=== PATIENT | female | born 1945 | race Caucasian/White ===

== ENCOUNTER → 2025-05-31 10:06 | Outpatient (CLI) | payer MEDICARE, OTHER, SELFPAY ==
[2025-05-31 10:18] LABS: Appearance Urine UA CLEAR; Bilirubin Urine UA NEGATIVE (NEGATIVE); Color Urine UA YELLOW; Glucose Urine UA NEGATIVE (Negative); Ketones Urine UA NEGATIVE (NEGATIVE); Leukocyte Esterase Urine UA NEGATIVE (NEGATIVE); Nitrite Urine UA NEGATIVE (Negative); Occult Blood Urine UA 2+ (Negative); Protein Urine UA NEGATIVE (Negative); Specific Gravity Urine UA 1.010 (1.000-1.035); Urobilinogen Urine UA 0.2 E.U./dL (0.2)
[2025-05-31 10:32] LABS: pH Urine UA 6.5 (4.5-8.0)
[2025-05-31 10:33] LABS: Culture Indicated Urine Cult Not Indicated
== END ==
PROVIDERS: PCP Internal Medicine; Visit Provider Obstetrics & Gynecology Gynecology
DX: N39.41 Urge incontinence (principal); N81.11 Cystocele, midline
CPT/HCPCS: 81001

== ENCOUNTER 2025-07-30 18:41 | Day surgery (SDC) | payer MEDICARE, OTHER, SELFPAY ==
[2025-07-24 09:24] VITALS: BMI 25.4
--- NOTE | 2025-07-25 16:11 | PM.GYNHP.1 ---
History of Present Illness History of Present Illness Narrative: Liliana Lomas is a 79 year old female Date of procedure:?? July 30, 2025 Preoperative diagnosis:? 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 Robotic laparoscopic sacral colpopexy. With prophylactic oophorectomy bilateral Possible mid urethral sling - if stress incontinence is diagnosed during surgery, with possible partial sling excision if new sling needed. cystoscopy Postop Meds Tylenol 1000 mg, ?3 times a day? Motrin 400 mg (over age 65 yr) 3 times a day Oycodone 5 mg,? take 1 pill every 4-6 hr as needed, # 5? Colace,? 1 pill BID, for constipation CC: Prolapse HPI: 79-year-old female who presents for evaluation of above complaint.?? She reports onset of symptoms 9 years ago, getting worse.?? She considers this a? Moderate? problem. She reports a worsening vaginal bulge that was treated earlier this year with a pessary by Dr. Guidry in [place]. She has a 3. Ring pessary that she removes nightly. We discussed that she might be able to do just fine removing it every 1-2 weeks, as removing it nightly can irritate the skin. She is here to discuss possible surgical treatment. She has symptoms suggestive of a cystocele and possible vaginal vault prolapse. She has a vaginal bulge that protrudes, the size of a large grape or a small golf ball. She has some voiding difficulty although it is atypical. Oddly after the pessary is in, she has some worsening urge incontinence but not worsening stress incontinence she uses vaginal estrogen. She has no defecation difficulty symptoms suggestive of a rectocele. No splinting, no straining for bowel movements On exam today, only a mild cystocele is noted, likely because of the corrective benefits of using the pessary. We will reexamine her with the pessary out for a few days and be able to see the full extent of her prolapse at follow up later this month. Definitely the bulge that is described above was not seen today She has some urge incontinence symptoms. She also has a history of 2 prior surgical treatments for stress incontinence. She had a bladder neck suspension in 1996, she is unsure if this was done vaginally or abdominally. She has lots of abdominal scars. She also had some type of a bladder sling done in the early . She also uses estrogen tablets. We discussed if she needs a refill in discussed different types of estrogen she is interested in trying vaginal estrogen cream, we will order for her For her incontinence she uses 2 mini pads in the day, none at night. Might leak 2 or 3 times a day. Triggers are both stress and urge incontinence, difficult to clarify by history. See triggers below. It sounds like she is reporting more urge incontinence with the pessary in place she voids every 2-3 hours in the day and 1 at night. We will offer her a trial of overactive bladder medication to see if this makes an impact on her symptoms or not. We will order her both oxybutynin and Myrbetriq. She can use oxybutynin XL 5 mg 1st and then switch to Myrbetriq 50 mg, to see if either of them as effective. No bladder infections prior hyst -??? +, still has ovaries ? -? 3 c-sec? -?? 0 Pelvic Floor Review of Systems: (HPI) Stress Urinary Incontinence symptoms (SHARLA):?? 1-2 per day Triggers include:??? [cough, exercise, walking, ? Urge Incontinence symptoms (Urge UI):?? 1-2 per day Triggers include:??? random, and ? running water,? not necessarily with full bladder with urge ? Pads: She wears two mini pads a day Overactive Bladder symptoms (OAB):? ? Frequency:?? Every 2 or 3 hour Nocturia:?? X1 Urgency:?? Moderate Prior incontinence treatment includes:? Medical:? None Surgical:? 1996, some type of bladder neck suspension, abdominal or vaginal Early 2 , some type of bladder sling, she does not remember Valeriomartha:?? Yes Physical therapy:?No? Pessary:?Yes, for the prolapse. And appears to be making urge incontinence worse. Diet / Fluids: Fluid restriction:? No Excessive fluids:?No Pain symptoms:? Painful bladder:???No Dysuria:??? No Dyspareunia:? No Dysmenorrhea:? No Urinary Risk Factors UTI?s, recurrent:? 0 Hematuria:? No Kidney Stones:?No? Tobacco use:? No Pelvic Organ Prolapse (POP) symptoms:?? Bulge:?+ Pressure and /or? Heaviness:?+? Splint for defecation or voiding:???0 Voiding dysfunction: Abnormal stream:? No Strain to void:? No Incomplete emptying:?No Voiding difficulty:? No Retention:??? No Bowel Function: Constipation:?0 Strain to defecate:?0 Fiber:?0 Laxatives:?0 Fecal Incontinence:? Liquid stool:? No Solid stool:?No?? Sexual function Sexually active:? No Incontinence with sex:? No ? General Review of Systems: Constitutional, CV, Endo, Musc-skel, Eyes, Cancer, Skin, Breast, GI, Heme/Lymph, Psych, Urinary, Neuro, [employer] Engineer, Resp, Sexual:??? Pertinent positives listed above in HPI All others reviewed and negative. . . [facility] Medical History (Updated 05/30/25 @ 16:12 by Danny Parra MD) Urge incontinence Cystocele, midline Allergies nitrofurantoin (From Macrobid) Allergy (Verified 07/17/25 11:14) Rash Medications calcium 333 mg-D3 8.3 mcg-magnesium ox 116.7 an-F-B-minerals capsule (BoneUp) cap PO 05/30/25 [History Confirmed 07/17/25] estradiol 0.01% (0.1 mg/gram) vaginal cream (Estrace) 1 g vaginal 3XW #42.5 grams 05/30/25 [Rx Confirmed 07/17/25] levothyroxine 75 mcg tablet (Synthroid) 75 mcg PO DAILY Low Thyroid 05/30/25 [History Confirmed 07/17/25] mirabegron 50 mg tablet,extended release 24 hr (Myrbetriq) 50 mg PO DAILY #30 tabs 05/30/25 [Rx Confirmed 07/17/25] rosuvastatin 5 mg tablet (Crestor) mg PO slightly high cholesteral 05/30/25 [History Confirmed 07/17/25] venlafaxine 37.5 mg capsule,extended release 24 hr (Effexor XR) 37.5 mg PO DAILY 05/30/25 [History Confirmed 07/17/25] calcium 333 mg-D3 8.3 mcg-magnesium ox 116.7 jp-N-J-minerals capsule (BoneUp) cap PO 06/12/25 [History Confirmed 07/17/25] cholecalciferol (vitamin D3) 100 mcg (4,000 unit) tablet 100 mcg PO DAILY 06/12/25 [History Confirmed 07/17/25] oxycodone 5 mg tablet 5 mg PO Q8H postop pain #5 tabs 07/17/25 [Rx Confirmed 07/17/25] Tobacco & Substance Use Smoking Status: Former smoker Exam Vitals 07/17/2511:19 Height 5 ft 5.25 in Weight 130 lb BMI 21.4 BP 129/61 Blood Pressure Location Lt radial Position Sitting Pulse 52 L Pulse Source Monitor Pulse Oximetry (%) 97 Oxygen Delivery Method room air Narrative: General: healthy, alert, coherent, no acute distress, cooperative, nontoxic Pulmonary: normal breathing, no distress Abdomen: soft, no mass, non-distended, no hernia, non-tender Vulva: Normal labia majora, labia minora, introitus, and clitoris, non-tender Urethra meatus: normal, no discharge Perineum: Normal, non-tender Urethra: No mass, non-tender Bladder: no mass, non-tender Vagina: No lesions, no discharge, min atrophy with good vag ERT effect, non-tender Prolapse -only a mild cystocele was really appreciated. Likely because of the pessary that is in place. We will examine her again at a later date this month, and have the pessary stay out for a few days in order to reveal the full extent of the prolapse Levators: Non-tender, 4 / 5 kegel squeeze hyst Bimanual: no mass, no adnexal mass, non-tender Anus: No lesion, non-tender, no hemorrhoid Empty Cough Stress test: Neg PVR: 20 mL by catheter Urethral angle hypermobile: Not really, appears to be supported at least in the mid and distal urethra by her prior urethropexy and mid urethral sling. The bladder does appear to prolapse over the urethra, likely kinking it POP-Q Exam: Aa: -1 Ba: -1, suspect likely is about +1 in reality, definitely a cystocele kinking over the urethra Ap: -1 Bp: -1, overall, this looks more like just some posterior wall laxity, not really a significant rectocele C: -6, suspect this will look like a stage 1-2 vaginal vault prolapse when the pessary is out D: Not applicable TVL: 8 GH: 3 PB: 2.5 Introitus size: 2 fingerbreadths Cystocele stage: Stage II, perhaps even stage III Rectocele stage: Possible mild stage II A rectocele Uterine/Vault Prolapse Stage: Suspect she might have more significant vaginal vault prolapse when the pessary is out. None seen today Assessment & Plan (1) Cystocele, midline: Status: Acute (2) Urge incontinence: Status: Acute (3) Vaginal pessary present: Assessment and Plan ? Patient counseled regarding above conditions.? Educational materials given to patient. 1. Pelvic Organ Prolapse - Stage 2 a cystocele, suspect possibly stage III cystocele, we will do repeat exam. Also suspect possible more significant vaginal vault prolapse This diagnosis and its etiology was discussed with the patient.? Treatment options were discussed including: expectant management, pessary trial, and surgical intervention. We briefly discussed risks and benefits of surgery. All surgery for prolapse is not 100% successful and there is a chance of recurrence or failure. Currently using a size 3. Ring pessary. Recommend that she remove for self-care every 1-2 weeks out overnight. We will have her return for an exam on June 12, 2013 days, we will have her leave the pessary out for about 5 days before the visit so that we can see the prolapse full extent she desires surgery, we will develop a surgical plan once we see the full extent of the prolapse We discussed various possible treatment options to include vaginal and laparoscopic surgery 2. Unclear type of atypical urinary incontinence, with history of 2 prior urethropexy these for stress incontinence. Sounds like urge and stress incontinence but mostly urge incontinence We can clarify further at future visits. For now, we will offer a trial of 2 different overactive bladder medications, oxybutynin XL 5 mg daily, and then try Myrbetriq 50 mg daily If these resolve the problem, then it is obviously more urge incontinence than stress incontinence Might need to consider doing urodynamics later, but presently these are not available here at the moment. Could do a simple CMG 3. Using vaginal estrogen Presently using Vagifem wants to try using vaginal estrogen cream, we will order for her. See prior note. She was using a pessary for her prolapse. She is interested in surgery. At the prior visit, her prolapse did not look very significant. So she presents today with her pessary out for the last few days to recheck to see if her prolapse is more significant, and needing surgery. See findings below. It is definitely more significant and she would like to proceed with surgery Exam ? General:? healthy, alert, coherent, no acute distress Today's POP-Q Exam: Aa: 0 Ba: +1 Ap: -1 Bp: -1 C: -5 D: Not applicable TVL: 8 GH: 3 PB: 2.5 prior POP-Q Exam: Aa: -1 Ba: -1, suspect likely is about +1 in reality, definitely a cystocele kinking over the urethra Ap: -1 Bp: -1, overall, this looks more like just some posterior wall laxity, not really a significant rectocele C: -6, suspect this will look like a stage 1-2 vaginal vault prolapse when the pessary is out D: Not applicable TVL: 8 GH: 3 PB: 2.5 ? Assessment / Recommendations: 1. Pelvic Organ Prolapse -stage II cystocele and vaginal vault prolapse, no significant rectocele .? This diagnosis and its etiology was discussed with the patient.? Treatment options were discussed including: expectant management, pessary trial, and surgical intervention. We briefly discussed risks and benefits of surgery. All surgery for prolapse is not 100% successful and there is a chance of recurrence or failure. Currently using a pessary, wishes to proceed with surgery she desires surgery my recommendation = robotic laparoscopic sacral colpopexy, cystoscopy see below for counseling 2. Urethral hypermobility She is at risk for postoperative stress incontinence from the prolapse repair. Studies show that in women with severe prolapse of the anterior vaginal wall, 25% will have significant stress incontinence, following prolapse repair surgery. So her usual risk of finding stress incontinence, as below, is 25%. However, she has a prior mid urethral sling from about 20 years ago.. It is unknown what the risk of recurrent incontinence will be in her situation. I expect it to be much lower. Also, it can be difficult to do a repeat sling, especially at the time of doing the sacral colpopexy. Pulling on the anterior vaginal wall tissue could potentially disrupt the sacral colpopexy repair. Therefore, we discussed the options of trying to diagnose stress incontinence at the time of surgery and proceeding with a sling, or, instead doing an interval sling if it is warranted. She and I both agree that doing an interval sling is the best strategy for her Therefore, we will notl plan to diagnose stress incontinence intra-operatively by filling the bladder with 200-300 cc of fluid, and then using a crede maneuver to see if there is leakage of fluid from the urethra. And we will not plan to proceed with doing a sling at the time of the surgery for the prolapse. We will do later as needed 3. She still has both tubes and ovaries. We discussed doing a prophylactic oophorectomy at the time of the surgery. She is leaning in that direction. She will let me know at follow up whether she wants her ovaries in place or removed. Date of procedure:?? July 30, 2025 Preoperative diagnosis:? 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 Robotic laparoscopic sacral colpopexy. With prophylactic oophorectomy bilateral Possible mid urethral sling - if stress incontinence is diagnosed during surgery Postop Meds Tylenol 1000 mg, ?3 times a day? Motrin 400 mg (over age 65 yr) 3 times a day Oycodone 5 mg,? take 1 pill every 4-6 hr as needed, # 5? Colace,? 1 pill BID, for constipation Patient counseled extensively about the Risks, Benefits, and Alternatives to surgery.? She was offered the opportunity to ask any questions, and all questions were answered. ? Surgical Risks include: Bleeding, Hemorrhage, Transfusion, Infection (especially wound or bladder), Injury to adjacent organs (especially bladder, ureter, bowel, blood vessels, nerves), Postop or Chronic Pain, need for Reoperation, and Life-threatening event (especially M.I., CVA, PE, DVT). Procedure Risks include: Failure to Cure condition, Recurrence of condition months or years later, Urinary incontinence, Voiding dysfunction or Urinary Retention with prolonged catheter use, Poor wound healing, Erosions of any mesh or graft used, Dyspareunia, Vaginal scarring or narrowing, Need for additional surgery (immediate or delayed).? The expected cure and improvement and failure rates were discussed. Patient counseled to avoid the following for 6 weeks after surgery: (1) Impact sports (like running or jumping), walking and stairs OK (2) Lifting over 20# (3) Sexual intercourse No limits after 6 weeks. ? Good exercise tolerance, > 4 Mets. Her current medications were reviewed, and instructions given over which to use and which to discontinue before surgery.? Post-operative care instructions reviewed.? We discussed post-operative pain: Pain should be in the mild-moderate range, but can be moderate-severe for the first few days.?? Prescriptions will typically be given for (1) acetaminophen (Tylenol) and (2) non-steroidal anti-inflammatory drug (NSAID, like Motrin or Naprosyn), use both together, around the clock. Prescription will also be given for a (3) narcotic pain medication. Use the narcotic as needed, as a booster to the Tylenol and NSAID. You might need 0-4 narcotic pills a day typically. The narcotic will only be needed for a few days.?? Gradually use less of the narcotic, but continue the Tylenol and NSAID.? After a few days, the narcotic should no longer be needed, and only the Tylenol and NSAID will be needed.? Warm packs or cold packs can also be used for pain.??Do not drive for as long as you are using the narcotic pain medication? - this should only be a few days.?? Constipation is associated with use of narcotic pain medications, and can be improved with use of a stool softener, or fiber, or a mild laxative.? If you are sent home from the hospital with a Santiago Catheter in place:? please call the office on the day after surgery We will usually remove the catheter 2-4 days after surgery: a. You will perform an at home Santiago catheter removal -or- b. You will come in to the office for a voiding trial, (For some unusual surgeries, we might leave the catheter in for up to 2 weeks, and then remove it.) Instructions for at home Santiago catheter removal..... For at-home Santiago catheter removal, this can be done on postop day 2 or 3 or 4, depending on various factors. 1. At 6 or 7 a.m., have the patient cut the Santiago catheter with scissors, while standing in a shower or bath tub. a. Cut the catheter right in the middle of the tubing, about 6 inches from the body. b. The sterile water that is inside the Santiago balloon will leak all over the floor of the shower or bath tub. This is expected. c. The catheter will either fall out of the urethra, or just gently pull on it and it will come out. 2. Now, the bladder will gradually fill up over the next few hours. 3. Go ahead and empty the bladder when you feel an urge to void. Please note how strong the urine stream is. a. If the urine stream is normal or close to normal, then everything is good to go. b. If the urine stream is slow or you can not void, then return to the clinic in the afternoon. We will place another Santiago catheter. We will repeat the voiding trial in 3-4 days. All of her questions were answered Danny Parra MD UroGynecology & Pelvic Reconstructive Surgery [facility] Medical History (Updated 07/24/25 @ 09:19 by Karen Bob RN) SEALS (dyspnea on exertion) Reactive airway disease PFO (patent foramen ovale) Osteopenia TIA (transient ischemic attack) CAD (coronary artery disease) HLD (hyperlipidemia) GERD (gastroesophageal reflux disease) Depression Skin cancer Hypothyroid Vaginal vault prolapse Urge incontinence Cystocele, midline Surgical History (Updated 07/24/25 @ 09:21 by Karen Bob RN) Hx of cardiac cath (04/28/17) Hx of appendectomy Hx of tonsillectomy S/P partial hysterectomy History of urologic surgery (01/30/97) History of midurethral sling procedure Social History Smoking Status: Former smoker Meds Home Medications and Allergies Home Medications ?Medication ?Instructions ?Recorded ?Confirmed ?Type calcium 333 mg-D3 8.3 cap PO 05/30/25 07/17/25 History mcg-magnesium ox 116.7 dj-K-L-minerals capsule (BoneUp) estradiol 0.01% (0.1 mg/gram) 1 g vaginal 3XW #42.5 grams 05/30/25 07/17/25 Rx vaginal cream (Estrace) levothyroxine 75 mcg tablet 75 mcg PO DAILY Low Thyroid 05/30/25 07/17/25 History (Synthroid) mirabegron 50 mg tablet,extended 50 mg PO DAILY #30 tabs 05/30/25 07/17/25 Rx release 24 hr (Myrbetriq) rosuvastatin 5 mg tablet (Crestor) mg PO slightly high cholesteral 05/30/25 07/17/25 History venlafaxine 37.5 mg 37.5 mg PO DAILY 05/30/25 07/17/25 History capsule,extended release 24 hr (Effexor XR) calcium 333 mg-D3 8.3 cap PO 06/12/25 07/17/25 History mcg-magnesium ox 116.7 dw-M-E-minerals capsule (BoneUp) cholecalciferol (vitamin D3) 100 100 mcg PO DAILY 06/12/25 07/17/25 History mcg (4,000 unit) tablet oxycodone 5 mg tablet 5 mg PO Q8H postop pain #5 tabs 07/17/25 07/17/25 Rx Allergies Allergy/AdvReac Type Severity Reaction Status Date / Time nitrofurantoin (From Allergy Rash Verified 07/17/25 11:14 Macrobid) Assessment & Plan Time-Based Coding :: [TOTAL MINUTES] spent with patient and on the chart (including review of chart, obtaining history, exam, reviewing outside data, placing orders, documenting exam and treatment plan, and counseling patient) on [DATE].
[2025-07-30] VITALS (13 sets, daily range): BP systolic 97–129; BP diastolic 53–85; PULSE 55–64; RESP 8–26; TEMP 36.7–37.4; O2SAT 95–100
--- NOTE | 2025-07-30 | PATH_ITS ---
[facility] Accession Number: [id number] No. of containers..01 Tissue . 01 Material submitted: . fallopian tube - BILATERAL FALLOPIAN TUBES AND BILATERAL OVARIES . 01 Diagnosis: BILATERAL FALLOPIAN TUBES AND BILATERAL OVARIES; BILATERAL SALPINGO-OOPHORECTOMY: Benign bilateral ovaries with corpus albicans and surface adhesions. Benign bilateral fallopian tubes and paratubal cysts. Negative for atypia or malignancy. [facility] 08/02/2025 1609 Local . 01 Electronically signed: . Elia Coreas MD, Pathologist NPI- [id number] . 01 Gross description: . Received in formalin with two patient identifiers and bilateral tubes and ovaries are two intact ovaries and two separate fallopian tubes. The first ovary is 4 g, 3.5 x 1.2 x 0.9 cm. The second ovary is 3 g, 3.4 x 1.5 x 0.7 cm. The cut surfaces of the ovaries are yellow-shaw and grossly unremarkable. The first fallopian tube is 6.9 cm long by 0.4 cm in diameter, with multiple paratubal cysts up to 0.5 cm. The second fallopian tube is 3 cm long by 0.4 cm in diameter, with multiple paratubal cysts up to 0.5 cm. The cut surfaces are shaw with pinpoint lumens. Periodicals Clerk sections are submitted as follows: . A1: First ovary and first fallopian tube with entire bisected fimbria. A2: Second ovary and second fallopian tube with entire bisected fimbria. ([id number]) /ADE 07/31/2025 1207 Local . 01 Pathologist provided ICD-10: N81.9, N81.11 . 01 CPT . 792415 Specimen Comment: A courtesy copy of this report has been sent to [facility] Pathology Performed at: [address] [address] [address] [address] [facility], [place], [place] [id number] MD Getachew Velasco MD Phone: [phone]
[2025-07-30] MEDS: PHENAZOPYRIDINE 100 MG TABLET 200 MG PO (11:52)
[2025-07-30] MEDS: GABAPENTIN 300 MG CAPSULE PO (11:52)
[2025-07-30] MEDS: ACETAMINOPHEN 325 MG TABLET 975 MG PO ×2 (11:52→21:15)
[2025-07-30] MEDS: SCOPOLAMINE 1 PATCH TOP (11:52)
[2025-07-30] MEDS: LACTATED RINGERS 1,000 ML 42 ML IV (11:53)
--- NOTE | 2025-07-30 14:25 | PM.PREOP ---
Pre-operative Note Interval Note History & Physical reviewed/Exam performed by Physician: Yes Changes to H&P: No H&P completed within 30 days and has changed as indicated here:: Robotic laparoscopic sacral colpopexy. With prophylactic oophorectomy bilateral cystoscopy (and no repeat sling at this surgery due to concern over disruption of the RSC repair)
--- NOTE | 2025-07-30 15:10 | SUR.OPER ---
Lithotomy on padded OR bed. [place] Pad Positioner under torso. Head on pillow, arms padded and tucked at sides. Legs secured in padded yellow fins stirrups. Foam facial pad in place per anesthesia. All pressure points padded and protected. Surgeon in room to assist with positioning and approve final position.
--- NOTE | 2025-07-30 17:53 | P.OP_ITS ---
Operative Date/Time/Diagnoses Date of procedure: 07/30/25 Time of procedure: 15:15 Pre-op diagnosis: Cystocele, vaginal vault prolapse, desires prophylactic oophorectomy Post-op diagnosis: same Procedure & Clinicians Procedure: Procedures Operation Date: 07/30/25 12:45 Actual Procedure Side Surgeon p Robotic Laparoscopic Sacral Colpopexy, Cystoscopy, Bilateral Oophorectomy, Bilateral Salpingectomy Bilateral Danny Parra MD Operative Notes Findings: Operative Note Surgeon:? Danny Parra MD Gang Ripsaw Operator: Tatiana Goodman MD Pre-Op Diagnosis:?? Vaginal vault prolapse, cystocele Desires prophylactic oophorectomy Prior mid urethral sling Post-Op Diagnosis:?? Same? Procedure:?? Robotic assisted laparoscopic sacral colpopexy, Robotic assisted laparoscopic bilateral salpingo-oophorectomy cystoscopy Findings (brief): 1. 5 ports, usual fashion. Stage II prolapse to +1 cm. No rectocele. Mild adhesions of the sigmoid colon to the vaginal cuff. Both tubes and ovaries were adhesed to the pelvic sidewalls. No adhesions of bowel or omentum. Both tubes and ovaries removed. Both were normal. 2.? Restorelle mesh cut to 4 cm Ant and 7 cm Post, attached to vagina with sutures of 2-0 vicyrl.?? Excellent support of all 3 compartments.? 3.? Cystoscopy with normal bladder, ureters, urethra, no injury, bilateral ureteral jets.? Date of Surgery:? July 30, 2025 Complications:? None Specimens:? Both tubes and ovaries Anesthesia Technique: General endotracheal Estimated Blood Loss (mls):? Minimal Blood Replacement (mls):? None Drains:? Fraire Condition:? Stable Procedure in detail: After consent was confirmed, the patient was taken to the operating room and?positioned with the [place] Pad on the OR bed, and then placed under general anesthesia without incident. ?Sequential compression devices were in place and active. ?She received perioperative antibiotics. ?The arms were tucked and her legs were placed in the dorsal lithotomy position using the Nakul stirrups. ??She was then prepped and draped in the usual sterile fashion. ?An examination under anesthesia was consistent with the preoperative assessment. ?A three-way 16 [place] fraire catheter was placed. ?Attention was turned to the abdomen. All 5 trocar sites were injected with 0.25% Marcaine with epinephrine prior to incision. A supra- umbilical 8?mm port was placed 2-3 cm above the umbilicus: a 8?mm incision was made, the Veress needle was placed, and pneumoperitoneum was achieved at low flow of 5, reaching a pressure of about 12, with 2-3 liters of CO2 gas. ?The abdominal wall was tented out to avoid any injury to underlying structures, and the trocar was introduced into the abdomen with ease, flow turned up to 40, pressure set at 12. ??Three?additional 8 mm robotic ports were placed, along the same line across the abdomen: ?? right lateral abdomen, left mid abdomen, left lateral abdomen,?under direct visualization atraumatically.??An additional press operator assistant 8 mm port was placed in the RUQ.?The patient was placed into steep Trendelenberg. ?The invino5?robot was Docked from a side-dock approach, using 3 arms. ?During the dissection, monopolar scissors and bipolar [place]?forceps were used, and during suturing, these were replaced with 2 needle drivers. ?The ChaoWIFI grasper was used at the 3rd arm for surgical assistance. ?The 4th port was for the surgical instrument technician (passing sutures and suction / irrigation). ?At this point, I went to the robotic console to operate the robot.? ?The sigmoid was retracted, and the sacral promontory was identified, and the ureters were identifed lateral to the intended surgical planes.? First the BSO was done, then the RSC was done. Both ovaries and fallopian tubes were identified. The right fallopian tube was grasped. Cautery was used on the right ovarian artery and vein and these were then cut. The tube and ovary were dissected off of the Right pelvic sidewall using cautery, with good hemostasis. The specimen was placed into the right lower quadrant. The same procedure was repeated on the left side. The Left tube and ovary specimen was also placed into the right lower quadrant, near the appendix. After the sacral colpopexy was completed, a 5 mm laparoscopic specimen bag was inserted through that port. Both tubes and ovaries were placed into that bag. The bag was pulled back out through the wound. The specimens were passed off the field. ? The bladder was dissected off the vagina for a distance of 4-5 cm, and the vagina was dissected off the posterior peritoneum, most of the way down the posterior vagina, approx 7 cm. ??The Lukasz Surgical Sacral Colpopexy tip with the [place] Arch was used to expose the vagina for dissection. ?Retrograde fill of the bladder facilitated the dissection. ?The peritoneum over the sacral promontory was incised and the dissection was carried down into the pelvis. ?The loose areolar connective tissue overlying the sacral promontory was dissected until the sacrum was clearly identified. ?The anterior arm of the Y-polypropylene mesh was fashioned as noted above, and sutured to the anterior vagina with several interrupted 2-0 vicryl sutures. ?The posterior arm of the mesh was fashioned as noted above, and sutured to the posterior vagina with several interrupted 2-0 vicryl sutures. ?The mesh tail was grasped to create a Y shape, cut to the appropriate length, and then attached to the sacral promontory in a tension-free manner, using 2 sutures of 2-0 Ethibond (permanent suture). The sacral peritoneum was closed over the mesh with a running 2-0 PDS / V-Lock suture, and then continued to close the peritoneum over the vaginal part of the mesh. I left the console and scrubbed and gowned and returned to the OR table. The robot was undocked.? As noted above, a 5 mm laparoscopic specimen bag was inserted and the specimens were placed into the bag and then removed. Sent to pathology. All of the ports were removed. All port sites were inspected for hemostasis, and pneumoperitoneum released. The skin incisions were reapproximated with 4-0 monocryl, and then dermabond was placed. ?Attention was turned to the remainder of the vagina where excellent apical support was appreciated. ?Cystourethroscopy was performed which revealed bilateral ureteral efflux of pyridium and no evidence of injury or suture material within the bladder urethra. Sponge, needle and instrument count was correct.? The patient tolerated the procedure well and was taken to the recovery room in stable condition. An additional set of hands was needed to perform the surgery, so a surgical instrument technician was needed for the case. The press operator assistant provided retraction and exposure throughout the case. Danny Parra MD UroGynecology & Pelvic Reconstructive Surgery [place], [place] Applied: implant(s) (Maegan sacral colpopexy Y mesh)
--- NOTE | 2025-07-30 18:20 | SUR.PHASEI ---
Report called to BC RN, questions answered.
[2025-07-30] MEDS: IBUPROFEN 400 MG TABLET PO (19:52)
--- NOTE | 2025-07-30 21:08 | PC.NURSE ---
This RN rec'd report from Allegra Cabral RN.
[2025-07-30] MEDS: DOCUSATE 100 MG CAPSULE PO (21:15)
[2025-07-31] MEDS: IBUPROFEN 400 MG TABLET PO (04:05)
[2025-07-31] MEDS: ACETAMINOPHEN 325 MG TABLET 975 MG PO (06:07)
[2025-07-31 06:09] VITALS: BP 103/45; PULSE 53; RESP 17; TEMP 37; O2SAT 95
--- NOTE | 2025-07-31 07:25 | PC.NURSE ---
Report given to Coby Mayes RN.
[2025-07-31] MEDS: DOCUSATE 100 MG CAPSULE PO (08:28)
[2025-07-31 09:00] VITALS: BP 103/49; PULSE 90; RESP 16; TEMP 36.4; O2SAT 95
== END 2025-07-31 11:30 | disposition home or self-care (01) ==
LOC: LABOR 07-31 06:15 → OR 07-31 13:42
PROVIDERS: PCP Internal Medicine; Referring Provider Obstetrics & Gynecology Gynecology; Visit Provider Obstetrics & Gynecology Gynecology
PROC: 0USG4ZZ Reposition Vagina, Percutaneous Endoscopic Approach (ICD-10-PCS; CPT 57425; principal; 2025-07-30 12:45)
DX: Z40.8 Encounter for other prophylactic surgery (principal); N99.3 Prolapse of vaginal vault after hysterectomy; N39.46 Mixed incontinence; N32.81 Overactive bladder; N36.41 Hypermobility of urethra; R35.1 Nocturia; Z87.891 Personal history of nicotine dependence; N73.6 Female pelvic peritoneal adhesions (postinfective); N83.8 Other noninflammatory disorders of ovary, fallopian tube and broad ligament
CPT/HCPCS: 57425; 58661; 36415; G0378; S2900; C1781; J0689; J1100; J1171; J2405; J2704; J3010; J3490; J7120